=== PATIENT | female | born 1980 | race Caucasian/White ===

== ENCOUNTER 2017-09-25 09:10 | Emergency (ER) | payer OTHER ==
[~2017-09-25] VITALS: Ht 160 cm; Wt 69.5 kg
[~2017-09-25 09:10] MED LIST: BENADRYL50 MG PO; ENDOCET 5-3251 EACH PO; FEOSOL325 MG PO; FERROUS SULFAT325 MG PO; IBUPROFEN800 MG PO; MOTRIN800 MG PO; PEPCID20 MG PO; PERCOCET 5/31 TABLET PO; PROAIR HFA8.5 GM IH; PROZAC10 MG PO; ULTRAM50 MG PO
[2017-09-25 10:03] LABS: HEMATOCRIT 30.3 % (36.0-46.0); HEMOGLOBIN 9.2 G/DL (11.9-15.5); MCH 22.3 PG (29.0-34.0); MCHC 30.4 G/DL (30.0-36.0); MCV 73.4 FL (83-99); PLATELET COUNT 406 K/uL (156-360); RBC DIS.WIDTH-CV 16.2 % (11.8-14.6); RED BLOOD COUNT 4.13 M/uL (3.80-5.20); WHITE BLOOD COUNT 10.2 K/uL (4.1-10.2)
[2017-09-25 10:11] LABS: ALBUMIN 3.9 g/dL (3.2-4.8)
[2017-09-25 10:12] LABS: CHLORIDE 106 mEq/L (99-109); POTASSIUM 3.6 mEq/L (3.7-5.4); SODIUM 144 mEq/L (136-147)
[2017-09-25 10:14] LABS: GLUCOSE 96 mg/dL (70-99); TOTAL PROTEIN 7.2 g/dL (6.4-8.3)
[2017-09-25 10:16] LABS: TOTAL BILIRUBIN 0.3 mg/dL (0.0-1.0)
[2017-09-25 10:17] LABS: ALKALINE PHOSPHATASE 88 IU/L (3-129)
[2017-09-25 10:18] LABS: CREATININE 0.6 mg/dL (0.6-1.3); GFR ESTIMATE (CALCULATED) > 59 mL/min/
[2017-09-25 10:19] LABS: AST (GOT) 18 IU/L (2-34); UREA NITROGEN (BUN) 13 mg/dL (9-23)
[2017-09-25 10:21] LABS: ALT (GPT) 18 IU/L (3-49)
[2017-09-25 10:28] LABS: QUANTITATIVE HCG < 4.0 MIU/ML
[2017-09-25 10:56] LABS: APPEARANCE CLOUDY ((CLEAR)); BILIRUBIN NEGATIVE; BLOOD NEGATIVE; COLOR AMBER ((YELLOW)); GLUCOSE (STRIP) NEGATIVE; KETONES NEGATIVE; LEUKOCYTES LARGE; NITRITE NEGATIVE; PROTEIN (STRIP) 30; SPECIFIC GRAVITY 1.027 (1.000-1.030)
[2017-09-25 11:21] LABS: BACTERIA 1+ /HPF; EPITHELIAL CELLS 1+ /HPF; MUCUS 3+ /LPF; RED BLOOD CELLS NONE SEEN /HPF (0-5); UCUL ADDED? YES; WHITE BLOOD CELLS 20-30 /HPF (0-5)
[2017-09-25] MEDS ORDERED: KEFLEX500 MG PO (11:35)
[2017-09-25] MEDS ORDERED: ZOFRAN ODT4 MG PO (11:35)
[2017-09-25 11:47] VITALS: BP 116/64
== END 2017-09-25 11:48 | disposition home or self-care (01) ==
LOC: EME 09:10 → RME 09:10
DX: N39.0 Urinary tract infection, site not specified (principal); R07.9 Chest pain, unspecified; F17.200 Nicotine dependence, unspecified, uncomplicated
CPT/HCPCS: 80053; 81003; 84702; 85027; 87086; 87502; 93005; 99281; 99283

== ENCOUNTER 2017-11-16 17:28 | Emergency (ER) | payer OTHER ==
[~2017-11-16] VITALS: Ht 160 cm; Wt 78.7 kg
[~2017-11-16 17:28] MED LIST changes: +KEFLEX500 MG PO; +ZOFRAN ODT4 MG PO
[2017-11-16 20:24] LABS: HEMATOCRIT 37.1 % (36.0-46.0); HEMOGLOBIN 12.1 G/DL (11.9-15.5); MCH 26.3 PG (29.0-34.0); MCHC 32.6 G/DL (30.0-36.0); MCV 80.7 FL (83-99); PLATELET COUNT 264 K/uL (156-360); RBC DIS.WIDTH-CV 23.8 % (11.8-14.6); RBC DIS.WIDTH-SD 67.4 % (39-53); WHITE BLOOD COUNT 10.8 K/uL (4.1-10.2)
[2017-11-16 20:34] LABS: ALBUMIN 3.9 g/dL (3.2-4.8); CHLORIDE 107 mEq/L (99-109); POTASSIUM 3.7 mEq/L (3.7-5.4); SODIUM 140 mEq/L (136-147)
[2017-11-16 20:36] LABS: GLUCOSE 90 mg/dL (70-99)
[2017-11-16 20:37] LABS: TOTAL PROTEIN 6.9 g/dL (6.4-8.3)
[2017-11-16 20:38] LABS: TOTAL BILIRUBIN 0.1 mg/dL (0.0-1.0)
[2017-11-16 20:40] LABS: ALKALINE PHOSPHATASE 75 IU/L (3-129); CREATININE 0.6 mg/dL (0.6-1.3); GFR ESTIMATE (CALCULATED) > 59 mL/min/
[2017-11-16 20:41] LABS: UREA NITROGEN (BUN) 10 mg/dL (9-23)
[2017-11-16 20:42] LABS: AST (GOT) 16 IU/L (2-34)
[2017-11-16 20:43] LABS: ALT (GPT) 18 IU/L (3-49)
[2017-11-16 20:44] LABS: APPEARANCE SL.HAZY ((CLEAR)); BILIRUBIN NEGATIVE; BLOOD SMALL; COLOR YELLOW ((YELLOW)); GLUCOSE (STRIP) NEGATIVE; KETONES NEGATIVE; LEUKOCYTES LARGE; NITRITE NEGATIVE; PROTEIN (STRIP) NEGATIVE; SPECIFIC GRAVITY 1.023 (1.000-1.030); UROBILINOGEN 0.2 MG/DL (0.2-1.0)
[2017-11-16 20:49] LABS: QUANTITATIVE HCG < 4.0 MIU/ML
[2017-11-16 20:54] LABS: BACTERIA RARE /HPF; EPITHELIAL CELLS 1+ /HPF; MUCUS TRACE /LPF; RED BLOOD CELLS 0-5 /HPF (0-5); UCUL ADDED? YES; WHITE BLOOD CELLS 15-20 /HPF (0-5)
[2017-11-16] MEDS ORDERED: ZOFRAN ODT4 MG PO (21:47)
[2017-11-16 21:58] VITALS: BP 115/69
== END 2017-11-16 22:04 | disposition home or self-care (01) ==
LOC: EME 17:28
PROVIDERS: Physician Assistant Medical
DX: R11.2 Nausea with vomiting, unspecified (principal); R10.11 Right upper quadrant pain; K76.0 Fatty (change of) liver, not elsewhere classified; Z87.891 Personal history of nicotine dependence
CPT/HCPCS: 76705; 80053; 81003; 84702; 85027; 87086; 93005; 99281; 99284